=== PATIENT | male | born 1955 | race Caucasian/White ===

== ENCOUNTER 2021-07-11 10:10 | Emergency (ER) | payer OTHER ==
[~2021-07-11] VITALS: Ht 172.7 cm; Wt 94.0 kg
[2021-07-11] MEDS ORDERED: IOHEXOL 300 MG/ML 75 ML VIAL. IV ONE (10:45)
--- NOTE | 2021-07-11 10:55 | PHYS DOC ---
Past History Additional Past Medical Histor: Umbilical hernia, diastasis recti (SHAYY CARUSO) Past Surgical History: Tonsillectomy (SHAYY CARUSO) Alcohol Use: None Drug Use: None (SHAYY CARUSO) General Adult EDM: Chief Complaint: BLOODY STOOL HPI: HPI: Patient is a 65 year old male who presents with bright red blood per rectum. Patient reports onset was yesterday with no pain. He states he felt like he had an episode of diarrhea, but when he looked in the toilet bowl he noted "severe" bleeding, as well as blood on toilet paper. Patient denies any screening colonoscopies or abdominal surgeries. He has had a chronic umbilical hernia and diastasis recti for approximately 2 decades. Patient denies fever, chills, weakness, epigastric pain, acid reflux, abdominal pain, nausea, vomiting, constipation, painful defecation, melena. He reports he has not been to the doctor in several years and takes no daily medications, including aspirin or other blood thinners. (SHAYY CARUSO) Review of Systems: Review of Systems: Constitutional: Denies fever or chills Respiratory: Denies cough or shortness of breath Cardiovascular: Denies chest pain or edema GI: See HPI : Denies dysuria or hematuria Musculoskeletal: Denies back pain or joint pain Integument: Denies rash or other skin lesions Neurologic: Denies headache, focal weakness or sensory changes (SHAYY CARUSO) Current Medications: Current Meds: Current Medications Medications (Trade) Dose Ordered Sig/Meme Start Time Stop Time Status Last Admin Dose Admin Iohexol (Omnipaque 300 Mg/ml) 75 ml 1X ONCE 07/11/21 10:45 07/11/21 10:46 UNV (SHAYY CARUSO) Allergies: Allergies: Allergies Coded Allergies Type Severity Reaction Last Updated Verified No Known Drug Allergies 07/11/21 No (SHAYY CARUSO) Physical Exam: PE: Constitutional: Pleasant and sitting comfortably on exam bed, well developed, well nourished, well groomed, no acute distress, non-toxic appearance. HENT: Normocephalic, atraumatic, bilateral external ears normal, oropharynx moist, no oral exudates, nose normal. Eyes: PERRLA, EOMI, conjunctiva normal, no discharge. Cardiovascular: Heart rate regular rhythm, no murmur. Lungs & Thorax: Bilateral breath sounds clear to auscultation. Abdomen: Bowel sounds normal, soft, no tenderness, periumbilical hernia and diastasis recti appreciated. Rectal: Gross blood appreciated around the anus and and gluteal fold, no external hemorrhoids, sphincter tone intact, multiple internal hemorrhoids appreciated. Skin: Warm, dry, no erythema, no rash. Back: No step-offs, no tenderness, no CVA tenderness. (SHAYY CARUSO) Current Patient Data: Labs: Laboratory Tests Test 07/11/21 10:35 07/11/21 11:00 07/11/21 14:01 Stool Occult Blood Positive (NEG) White Blood Count 10.5 x10^3/uL (4.0-11.0) Red Blood Count 3.33 x10^6/uL (4.30-5.70) Hemoglobin 10.3 g/dL (13.0-17.5) Hematocrit 30.7 % (39.0-53.0) Mean Corpuscular Volume 92 fL (79-100) Mean Corpuscular Hemoglobin 31 pg (25-35) Mean Corpuscular Hemoglobin Concent 34 g/dL (31-37) Red Cell Distribution Width 14.2 % (11.5-14.5) Platelet Count 237 x10^3/uL (140-400) Neutrophils (%) (Auto) 88 % (31-73) Lymphocytes (%) (Auto) 7 % (24-48) Monocytes (%) (Auto) 5 % (0-9) Eosinophils (%) (Auto) 0 % (0-3) Basophils (%) (Auto) 0 % (0-3) Neutrophils # (Auto) 9.2 x10^3uL (1.8-7.7) Lymphocytes # (Auto) 0.7 x10^3/uL (1.0-4.8) Monocytes # (Auto) 0.6 x10^3/uL (0.0-1.1) Eosinophils # (Auto) 0.0 x10^3/uL (0.0-0.7) Basophils # (Auto) 0.0 x10^3/uL (0.0-0.2) Sodium Level 142 mmol/L (136-145) Potassium Level 4.1 mmol/L (3.5-5.1) Chloride Level 106 mmol/L (98-107) Carbon Dioxide Level 26 mmol/L (21-32) Anion Gap 10 (6-14) Blood Urea Nitrogen 17 mg/dL (8-26) Creatinine 0.9 mg/dL (0.7-1.3) Estimated GFR (Cockcroft-Gault) 84.2 BUN/Creatinine Ratio 19 (6-20) Glucose Level 131 mg/dL (70-99) Calcium Level 8.0 mg/dL (8.5-10.1) Total Bilirubin 0.3 mg/dL (0.2-1.0) Aspartate Amino Transf (AST/SGOT) 12 U/L (15-37) Alanine Aminotransferase (ALT/SGPT) 17 U/L (16-63) Alkaline Phosphatase 40 U/L (46-116) Total Protein 6.1 g/dL (6.4-8.2) Albumin 3.4 g/dL (3.4-5.0) Albumin/Globulin Ratio 1.3 (1.0-1.7) Urine Collection Type Clean catch Urine Color Yellow Urine Clarity Hazy Urine pH 5.5 Urine Specific [place] 1.010 Urine Protein Neg (NEG-TRACE) Urine Glucose (UA) Neg mg/dL (NEG) Urine Ketones (Stick) Neg mg/dL (NEG) Urine Blood Small (NEG) Urine Nitrite Pos (NEG) Urine Bilirubin Neg (NEG) Urine Urobilinogen Dipstick 0.2 mg/dL (0.2 mg/dL) Urine Leukocyte Esterase Large (NEG) Urine RBC 6-10 /HPF (0-2) Urine WBC >40 /HPF (0-4) Urine Squamous Epithelial Cells Mod /LPF Urine Bacteria Many /HPF (0-FEW) Vital Signs: Vital Signs Date Time Temp Pulse Resp B/P (MAP) Pulse Ox O2 Delivery O2 Flow Rate FiO2 07/11/21 13:29 79 16 189/87 (121) 99 Room Air 07/11/21 12:21 87 16 187/97 (127) 99 Room Air 07/11/21 10:17 98.0 89 16 171/98 (122) 99 Room Air (SHAYY CARUSO) Radiology/Procedures: Radiology/Procedures: PROCEDURE: CT ABD PELV W/ IV CONTRST ONLY EXAMINATION: CT abdomen and pelvis with IV contrast. INDICATION:65 years, Male, bloody stool. TECHNIQUE: Axial CT images of the abdomen and pelvis were obtained. Coronal and sagittal reformatted performed. COMPARISON: None. Exposure: One or more of the following individualized dose reduction techniques were utilized for this examination: 1. Automated exposure control 2. Adjustment of the mA and/or kV according to patient size 3. Use of iterative reconstruction technique. FINDINGS: LOWER CHEST: Unremarkable ABDOMEN/PELVIS: Liver, biliary ducts, spleen, pancreas, and adrenal glands are unremarkable. There is a 1.0 cm nodular soft tissue density adjacent to the gallbladder fundus, suggesting of an adenomyomatosis. No hydronephrosis or nephrolithiasis in either kidney. 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 Nonspecific bilateral perinephric fat stranding, particularly adjacent to the right lower pole kidney. Extensive colonic diverticulosis without acute diverticulitis. Appendix is normal. No bowel obstruction. Mild aortoiliac atherosclerotic calcifications without dilation or narrowing. Mesenteric arteries and portal vein are patent. No pneumoperitoneum or ascites. No abdominopelvic lymphadenopathy by size criteria. Diffuse urinary bladder wall thickening with trabeculation and small anterior bladder diverticulum, likely secondary to chronic outlet obstruction. Coarse calcifications in the prostate, indents bladder base. MUSCULOSKELETAL STRUCTURES: Moderate size bilateral inguinal hernias containing mesenteric vessels, fat and nonobstructed right distal ureter. Small fat-containing umbilical hernia containing loop of small bowel without obstruction. Multilevel degenerative changes in the spine. No acute osseous process. IMPRESSION: 1. Extensive colonic diverticulosis without acute diverticulitis, which could be the source of bloody stool. 2. Moderate size bilateral inguinal hernias containing mesenteric vessels, fat and nonobstructed right distal ureter. 3. Diffuse urinary bladder wall thickening with trabeculation and small anterior bladder diverticulum, likely secondary to chronic outlet obstruction. 4. Nonspecific bilateral perinephric fat stranding, particularly adjacent to the right lower pole kidney. Correlate for urinary tract infection. 5. Small fat-containing umbilical hernia containing loop of small bowel, without obstruction. 6. Other chronic/incidental findings, as described above. Electronically signed by: Jaylyn Wadsworth MD (07/11/2021 12:28 PM) ROSEANN (SHAYY CARUSO) Heart Score: C/O Chest Pain: No (SHAYY CARUSO) Course & Med Decision Making: Course & Med Decision Making Pertinent Labs and Imaging studies reviewed. (See chart for details) Patient presentation consistent with lower GI bleed. [place] score 10 (age, sex, gross blood on KATHY, HR, systolic BP, hemoglobin). Patient having difficulty providing urine sample. Will attempt straight cath. Straight cath unsuccessful secondary to urethral obstruction, likely by prostate as demonstrated on CT findings. Patient needs transfer to facility with GI as well as urology. Bleeding is likely secondary to diverticulosis. Discussed transfer with patient and his . They would like to be sent to [facility], if possible. COVID rapid and PCR swabs obtained. Patient unvaccinated against COVID-19. Patient transfer accepted at [facility] on the [place]. (SHAYY CARUSO) Dragon Disclaimer: Dragon Disclaimer: This electronic medical record was generated, in whole or in part, using a voice recognition dictation system. (SHAYY CARUSO) Attending Co-Sign The patient was seen and interviewed as well as examined at the bedside. The chart was reviewed. The case was discussed. Agree with the plan of care. (ROSA TOTH DO) Departure Departure: Impression: Primary Impression: Acute lower GI bleeding Additional Impressions: Urethral obstruction Diverticulosis of intestine with bleeding Qualified Codes: K57.31 - Diverticulosis of large intestine without perforation or abscess with bleeding Anemia associated with acute blood loss Urinary tract infection in male Disposition: 02 [facility]ORT TERM [facility]OSPITAL Condition: GUARDED Referrals: PCP,NO (PCP) SHAYY CARUSO Jul 11, 2021 10:55 ROSA TOTH DO Jul 12, 2021 19:10
[2021-07-11 10:58] LABS: FECAL OB PT POSITIVE (NEG)
[2021-07-11 11:19] LABS: BASO % 0 % (0-3); EOS % 0 % (0-3); HEMATOCRIT 30.7 % (39.0-53.0); HEMOGLOBIN 10.3 g/dL (13.0-17.5); LYMPH # 0.7 x10^3/uL (1.0-4.8); LYMPH % 7 % (24-48); MEAN CORPUSCULAR HEMOGLOBIN 31 pg (25-35); MEAN CORPUSCULAR HGB CONC 34 g/dL (31-37); MEAN CORPUSCULAR VOLUME 92 fL (79-100); MONO # 0.6 x10^3/uL (0.0-1.1); MONO % 5 % (0-9); NEUT # 9.2 x10^3uL (1.8-7.7); NEUT % 88 % (31-73); PLATELET COUNT 237 x10^3/uL (140-400); RED BLOOD COUNT 3.33 x10^6/uL (4.30-5.70); RED CELL DISTRIBUTION WIDTH 14.2 % (11.5-14.5); WHITE BLOOD COUNT 10.5 x10^3/uL (4.0-11.0)
[2021-07-11 11:33] LABS: CREATININE 0.9 mg/dL (0.7-1.3); GFR 84.2; POTASSIUM 4.1 mmol/L (3.5-5.1)
[2021-07-11 11:40] LABS: ALBUMIN 3.4 g/dL (3.4-5.0); ALBUMIN/GLOBULIN RATIO 1.3 (1.0-1.7); TOTAL BILIRUBIN 0.3 mg/dL (0.2-1.0); TOTAL PROTEIN 6.1 g/dL (6.4-8.2)
[2021-07-11] MEDS ORDERED: IV RINGERS SOLUTION,LACTATED 500 ML IV ONE (12:15)
[2021-07-11] MEDS ORDERED: PANTOPRAZOLE IV 40 MG VIAL. IVP ONE (12:30)
--- NOTE | 2021-07-11 12:30 | RAD ---
EXAMINATION: CT abdomen and pelvis with IV contrast. INDICATION:65 years, Male, bloody stool. TECHNIQUE: Axial CT images of the abdomen and pelvis were obtained. Coronal and sagittal reformatted performed. COMPARISON: None. Exposure: One or more of the following individualized dose reduction techniques were utilized for thi s examination: 1. Automated exposure control 2. Adjustment of the mA and/or kV according to patient size 3. Use of iterative reconstruction technique. FINDINGS: LOWER CHEST: Unremarkable ABDOMEN/PELVIS: Liver, biliary ducts, spleen, pancreas, and adrenal glands are unremarkable. There is a 1.0 cm nodula r soft tissue density adjacent to the gallbladder fundus, suggesting of an adenomyomatosis. No hydron ephrosis or nephrolithiasis in either kidney. 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 Nonspecific bilateral perinephric fat stranding, particularly adjacent to the right lower pole kidney. Extensive colonic diverticulosis without acute diverticulitis. Appendix is normal. No bowel obstructi on. Mild aortoiliac atherosclerotic calcifications without dilation or narrowing. Mesenteric arteries and portal vein are patent. No pneumoperitoneum or ascites. No abdominopelvic lymphadenopathy by siz e criteria. Diffuse urinary bladder wall thickening with trabeculation and small anterior bladder div erticulum, likely secondary to chronic outlet obstruction. Coarse calcifications in the prostate, ind ents bladder base. MUSCULOSKELETAL STRUCTURES: Moderate size bilateral inguinal hernias containing mesenteric vessels, fat and nonobstructed right d istal ureter. Small fat-containing umbilical hernia containing loop of small bowel without obstructio n. Multilevel degenerative changes in the spine. No acute osseous process. IMPRESSION: 1. Extensive colonic diverticulosis without acute diverticulitis, which could be the source of blood y stool. 2. Moderate size bilateral inguinal hernias containing mesenteric vessels, fat and nonobstructed rig ht distal ureter. 3. Diffuse urinary bladder wall thickening with trabeculation and small anterior bladder diverticulu m, likely secondary to chronic outlet obstruction. 4. Nonspecific bilateral perinephric fat stranding, particularly adjacent to the right lower pole ki dney. Correlate for urinary tract infection. 5. Small fat-containing umbilical hernia containing loop of small bowel, without obstruction. 6. Other chronic/incidental findings, as described above. Electronically signed by: Jaylyn Wadsworth MD (07/11/2021 12:28 PM) [id number]
[2021-07-11 14:39] LABS: BACTERIA,URINE MANY /HPF (0-FEW); BILIRUBIN,URINE NEG (NEG); CLARITY,URINE HAZY; COLOR,URINE YELLOW; GLUCOSE,URINE NEG (NEG); NITRITE,URINE POS (NEG); SQUAMOUS EPITHELIAL CELL,UR MOD /LPF; UROBILINOGEN,URINE 0.2 mg/dL (0.2 mg/dL); WBC,URINE >40 /HPF (0-4)
[2021-07-11] MEDS ORDERED: CIPROFLOXACIN 400MG PREMIX 200 ML IV ONE (15:15)
[2021-07-11 16:05] VITALS: BP 178/89
== END 2021-07-11 16:47 | disposition short-term general hospital (02) ==
LOC: ER 10:10
DX: K64.8 Other hemorrhoids (principal); K92.2 Gastrointestinal hemorrhage, unspecified; N36.8 Other specified disorders of urethra; K57.31 Diverticulosis of large intestine without perforation or abscess with bleeding; D62 Acute posthemorrhagic anemia; N39.0 Urinary tract infection, site not specified; Z20.822 Contact with and (suspected) exposure to COVID-19
CPT/HCPCS: 36415; 74177; 80053; 81001; 82274; 85025; 87086; 87426; 96361; 96365; 96375; 99285; C9113; C9803; J0744; J7120; Q9967; U0003